=== PATIENT | male | born 1970 | race Caucasian/White ===

== ENCOUNTER 2017-01-10 18:01 | Inpatient (IN) | payer BC ==
[2017-01-10] MEDS ORDERED: HYDROmorphone 1 MG/ML 1 ML SYRINGE IVP STA (19:22)
--- NOTE | 2017-01-10 19:31 | ED ---
General Adult HPI - General Chief complaint: Recheck/Abnormal Lab/Rx Stated complaint: Hiatal Hernia-Sent by Dr Ladd Time Seen by Provider: 01/10/17 18:30 Source: patient, RN notes reviewed Mode of arrival: ambulatory Limitations: no limitations - History of Present Illness Initial comments: This is a 46-year-old male who presents emergency department stating that he has an umbilical hernia that is causing quite a bit of pain. Patient states the hernia started about 5 years ago the last evening cup coughing and he felt a tearing sensation is umbilical hernia it grow in size and became extremely tender. Patient saw Dr. Flakito Fraga sent the patient in the emergency department to be admitted. Patient denies any nausea or vomiting. Patient denies any fever chills patient denies chest pain difficulty breathing or shortness of breath - Related Data Home Medications Medication Instructions Recorded Confirmed Albuterol Inhaler [Ventolin Hfa 2 puff INHALATION RT-Q6H PRN 01/10/17 01/10/17 Inhaler] Albuterol Nebulized [Ventolin 2.5 mg INHALATION RT-Q6H PRN 01/10/17 01/10/17 Nebulized] Aspirin [Adult Low Dose Aspirin EC] 81 mg PO DAILY 01/10/17 01/10/17 Atorvastatin [Lipitor] 40 mg PO DAILY 01/10/17 01/10/17 Clopidogrel [Plavix] 75 mg PO DAILY 01/10/17 01/10/17 Ibuprofen [Motrin] 800 mg PO DAILY 01/10/17 01/10/17 Lisinopril [Zestril] 2.5 mg PO DAILY 01/10/17 01/10/17 Metoprolol Tartrate [Lopressor] 25 mg PO DAILY 01/10/17 01/10/17 Montelukast Sodium [Singulair] 10 mg PO DAILY 01/10/17 01/10/17 Allergies Allergy/AdvReac Type Severity Reaction Status Date / Time Penicillins Allergy Unknown Verified 01/10/17 19:16 Sulfa (Sulfonamide Allergy Unknown Verified 01/10/17 19:16 Antibiotics) Review of Systems ROS Statement: Those systems with pertinent positive or pertinent negative responses have been documented in the HPI. ROS Other: All systems not noted in ROS Statement are negative. Past Medical History Past Medical History: Asthma, COPD, Hyperlipidemia, Hypertension, Myocardial Infarction ([place]) History of Any Multi-Drug Resistant Organisms: None Reported Past Surgical History: Heart Catheterization With Stent Additional Past Surgical History / Comment(s): laparotomy Past Psychological History: No Psychological Hx Reported Smoking Status: Current every day smoker Past Alcohol Use History: None Reported Past Drug Use History: None Reported General Exam - General Exam Comments Initial Comments: GENERAL: Patient is well-developed and well-nourished. Patient is nontoxic and well- hydrated and is in mild distress. ENT: Neck is soft and supple. No significant lymphadenopathy is noted. Oropharynx is clear. Moist mucous membranes. Neck has full range of motion without eliciting any pain. EYES: The sclera were anicteric and conjunctiva were pink and moist. Extraocular movements were intact and pupils were equal round and reactive to light. Eyelids were unremarkable. PULMONARY: Unlabored respirations. Good breath sounds bilaterally. No audible rales rhonchi or wheezing was noted. CARDIOVASCULAR: There is a regular rate and rhythm without any murmurs gallops or rubs. ABDOMEN: Patient has an umbilical hernia that measures about 3 days in diameter and is extremely tender to touch and is erythematous SKIN: Skin is clear with no lesions or rashes and otherwise unremarkable. NEUROLOGIC: Patient is alert and oriented x3. Cranial nerves II through XII are grossly intact. Motor and sensory are also intact. Normal speech, volume and content. Symmetrical smile. MUSCULOSKELETAL: Normal extremities with adequate strength and full range of motion. No lower extremity swelling or edema. No calf tenderness. LYMPHATICS: No significant lymphadenopathy is noted PSYCHIATRIC: Normal psychiatric evaluation. Limitations: no limitations Course Vital Signs 01/10/17 01/10/17 01/10/17 18:13 19:47 20:54 Temperature 98.1 F Pulse Rate 68 83 62 Respiratory 20 18 17 Rate Blood Pressure 131/66 138/66 120/55 O2 Sat by Pulse 98 95 95 Oximetry Medical Decision Making - Medical Decision Making Dr. Nathan Anderson came down to see the patient and decided to take the patient to the OR - Lab Data Result diagrams: 01/10/17 19:43 01/10/17 19:43 Lab Results 01/10/17 01/10/17 01/10/17 Range/Units 19:43 19:43 19:43 WBC 9.6 (3.8-10.6) k/uL RBC 4.45 (4.30-5.90) m/uL Hgb 14.4 (13.0-17.5) gm/dL Hct 40.9 (39.0-53.0) % MCV 91.9 (80.0-100.0) fL MCH 32.4 (25.0-35.0) pg MCHC 35.2 (31.0-37.0) g/dL RDW 14.4 (11.5-15.5) % Plt Count 176 (150-450) k/uL Neutrophils % 67 % Lymphocytes % 20 % Monocytes % 7 % Eosinophils % 2 % Basophils % 0 % Neutrophils # 6.5 (1.3-7.7) k/uL Lymphocytes # 2.0 (1.0-4.8) k/uL Monocytes # 0.7 (0-1.0) k/uL Eosinophils # 0.2 (0-0.7) k/uL Basophils # 0.0 (0-0.2) k/uL PT (9.0-12.0) sec INR (<1.2) APTT (22.0-30.0) sec Sodium 136 L (137-145) mmol/L Potassium 4.2 (3.5-5.1) mmol/L Chloride 102 (98-107) mmol/L Carbon Dioxide 25 (22-30) mmol/L Anion Gap 9 mmol/L BUN 11 (9-20) mg/dL Creatinine 0.90 (0.66-1.25) mg/dL Est GFR (MDRD) Af Amer >60 (>60 ml/min/1.73 sqM) Est GFR (MDRD) Non-Af >60 (>60 ml/min/1.73 sqM) Glucose 84 (74-99) mg/dL Plasma Lactic Acid Mundo 0.8 (0.7-2.0) mmol/L Calcium 9.0 (8.4-10.2) mg/dL Total Bilirubin 1.2 (0.2-1.3) mg/dL AST 22 (17-59) U/L ALT 42 (21-72) U/L Alkaline Phosphatase 103 (38-126) U/L Total Protein 6.7 (6.3-8.2) g/dL Albumin 3.9 (3.5-5.0) g/dL 01/10/17 Range/Units 19:43 WBC (3.8-10.6) k/uL RBC (4.30-5.90) m/uL Hgb (13.0-17.5) gm/dL Hct (39.0-53.0) % MCV (80.0-100.0) fL MCH (25.0-35.0) pg MCHC (31.0-37.0) g/dL RDW (11.5-15.5) % Plt Count (150-450) k/uL Neutrophils % % Lymphocytes % % Monocytes % % Eosinophils % % Basophils % % Neutrophils # (1.3-7.7) k/uL Lymphocytes # (1.0-4.8) k/uL Monocytes # (0-1.0) k/uL Eosinophils # (0-0.7) k/uL Basophils # (0-0.2) k/uL PT 11.0 (9.0-12.0) sec INR 1.1 (<1.2) APTT 26.9 (22.0-30.0) sec Sodium (137-145) mmol/L Potassium (3.5-5.1) mmol/L Chloride (98-107) mmol/L Carbon Dioxide (22-30) mmol/L Anion Gap mmol/L BUN (9-20) mg/dL Creatinine (0.66-1.25) mg/dL Est GFR (MDRD) Af Amer (>60 ml/min/1.73 sqM) Est GFR (MDRD) Non-Af (>60 ml/min/1.73 sqM) Glucose (74-99) mg/dL Plasma Lactic Acid Mundo (0.7-2.0) mmol/L Calcium (8.4-10.2) mg/dL Total Bilirubin (0.2-1.3) mg/dL AST (17-59) U/L ALT (21-72) U/L Alkaline Phosphatase (38-126) U/L Total Protein (6.3-8.2) g/dL Albumin (3.5-5.0) g/dL Disposition Clinical Impression: Incarcerated hernia Disposition: ADMITTED IP TO THIS [facility] Referrals: Jitendra Drake MD [Primary Care Provider] - 1-2 days Time of Disposition: 21:15
[2017-01-10] MEDS ORDERED: RX INFO: IV CONTRAST WAS GIVEN 1 EACH MISC MISCELLANE PRN (19:36)
[2017-01-10 20:03] LABS: Basophils % (A) 0 %; CHCM 36.1; Eosinophils # (A) 0.2 k/uL (0-0.7); Eosinophils % (A) 2 %; HCT 40.9 % (39.0-53.0); HGB 14.4 gm/dL (13.0-17.5); Luc # (Auto) 0.29; Luc % (Auto) 3; Lymphocytes % (A) 20 %; MCH 32.4 pg (25.0-35.0); MCHC 35.2 g/dL (31.0-37.0); MCV 91.9 fL (80.0-100.0); Mean Platelet Volume 8.5; Monocytes # (A) 0.7 k/uL (0-1.0); Monocytes % (A) 7 %; Neutrophils # (A) 6.5 k/uL (1.3-7.7); Neutrophils % (A) 67 %; RBC 4.45 m/uL (4.30-5.90); RDW 14.4 % (11.5-15.5); WBC 9.6 k/uL (3.8-10.6); WBC (Perox) 9.47
[2017-01-10 20:08] LABS: ALT 42 U/L (21-72); AST 22 U/L (17-59); Alkaline Phosphatase 103 U/L (38-126); Anion Gap 9 mmol/L; Blood Urea Nitrogen 11 mg/dL (9-20); Carbon Dioxide 25 mmol/L (22-30); Chloride 102 mmol/L (98-107); Glucose 84 mg/dL (74-99); Non-African American GFR(MDRD) >60 (>60 ml/min/1.73 sqM); Potassium 4.2 mmol/L (3.5-5.1); Sodium 136 mmol/L (137-145); Total Bilirubin 1.2 mg/dL (0.2-1.3); Total Protein 6.7 g/dL (6.3-8.2)
[2017-01-10 20:12] LABS: INR 1.1 (<1.2); Partial Thromboplastin Time 26.9 sec (22.0-30.0)
--- NOTE | 2017-01-10 20:30 | CT ---
EXAMINATION TYPE: CT abdomen pelvis w con DATE OF EXAM: 01/10/2017 COMPARISON: NONE HISTORY: Umbilical hernia. CT DLP: 1709.00 mGycm Automated exposure control for dose reduction was used. TECHNIQUE: Helical acquisition of images was performed from the lung bases through the pelvis. CONTRAST: Performed without Oral Contrast and with IV Contrast, patient injected with 100 mL of Omnipaque 300. FINDINGS: Lung bases are clear of consolidation. There is no pleural effusion. Heart size is normal. The liver spleen pancreas gallbladder appear normal. Bile ducts are not dilated. There is no adrenal mass. Kidneys show satisfactory contrast opacification. There is no hydronephrosis. There is no retro peritoneal adenopathy. There is no ascites. I see no intestinal wall thickening. There are no dilated loops. There is umbilical hernia that conta ins fat and fluid. I do not see any definite bowel in the hernia sac. Hernia measures 5 x 3.5 cm. Abd ominal aorta is atheromatous. Bladder distends smoothly. There is no evidence of a pelvic mass. Appendix appears normal. I see no b brinda destructive process. IMPRESSION: LARGE UMBILICAL HERNIA CONTAINS OMENTAL FAT. THERE IS SOME FAT STRANDING CONSISTENT WITH INFLAMMATORY PROCESS. THIS EXTENDS INTO THE INTRA-ABDOMINAL OMENTAL FAT. NO EVIDENCE OF A BOWEL OBSTRUCTION. MODERATE ATHEROSCLEROTIC VASCULAR CALCIFICATION FOR THE PATIENT'S AGE.
[2017-01-10] MEDS ORDERED: ALBUTEROL NEBULIZED 2.5 MG/3 ML INHALATION STA (21:31)
[2017-01-10] MEDS ORDERED: HEPARIN SODIUM,PORCINE 5,000 UNIT/ML 1 ML VIAL SQ ONE (21:50)
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
[2017-01-10] MEDS ORDERED: LIDOCAINE 1% INJ 10MG/ML (20 ML MDV) ONE (22:36)
[2017-01-10] MEDS ORDERED: PROPOFOL 10 MG/ML 20 ML VIAL IV ONE (22:36)
[2017-01-10] MEDS ORDERED: fentaNYL (PF) 50 MCG/ML 2 ML AMP ONE (22:36)
[2017-01-10] MEDS ORDERED: SUCCINYLCHOLINE CHLORIDE 100 MG/5 ML SYR IV ONE (22:36)
[2017-01-10] MEDS ORDERED: ALBUTEROL INHALER 60 PUFF/8 GM INHALER INHALATION ONE (22:36)
[2017-01-10] MEDS ORDERED: MIDAZOLAM 2 MG/2 ML VIAL ONE (22:36)
[2017-01-10] MEDS ORDERED: ROCURONIUM BROMIDE 10 MG/ML 10 ML VIAL IV ONE (22:36)
[2017-01-10] MEDS ORDERED: IV FLUID CONTINUATION 800 ML IV ONE ×2 (22:36)
[2017-01-10] MEDS ORDERED: GLYCOPYRROLATE 0.2 MG/ML 2 ML VIAL ONE (22:36)
[2017-01-10] MEDS ORDERED: NEOSTIGMINE 1 MG/ML 10 ML VIAL ONE (22:36)
[2017-01-10] MEDS ORDERED: CIPROFLOXACIN/DEXTROSE PMX 400 MG in DEXTROSE/WATER 1 200ML.BAG IVPB STA (22:48)
[2017-01-10] MEDS ORDERED: SODIUM CHLORIDE 0.9% IV ONE ×2 (22:58)
[2017-01-10] MEDS ORDERED: CLINDAMYCIN IV ONE ×2 (22:58)
[2017-01-10] MEDS ORDERED: NALOXONE 0.4 MG/ML 1 ML VIAL IV PRN (23:33)
--- NOTE | 2017-01-10 23:33 | P.OP ---
Date of Procedure: 01/10/17 Preoperative Diagnosis: Incarcerated umbilical hernia with cellulitis Postoperative Diagnosis: Same Procedure(s) Performed: Reduction of incarcerated umbilical hernia, removal of hernia sac, repair of hernia Anesthesia: ALEXYS Surgeon: Loli Blanchard Estimated Blood Loss (ml): 20 IV fluids (ml): 1,000 Pathology: other (Hernia sac, incarcerated omentum) Condition: stable Disposition: PACU Indications for Procedure: Painful incarcerated umbilical hernia Operative Findings: Incarcerated umbilical hernia, Description of Procedure: Patient was taken to the operating room and following induction of general anesthesia the abdomen was prepped and draped in a sterile fashion. A periumbilical abdominal incision was made. This was carried down to the fascia superiorly and inferiorly of the intra-abdominal wall. The patient was noted noted to have a very indurated hernia sac and this was dissected free from the umbilical skin and to the area of the fascia. The sac was opened and the sac was then divided using the LigaSure. The sac was resected using the LigaSure. The actual defect in the fascia was approximately 3 cm in size and this was enlarged to reduce the contents of the sac. The contents of the sac revealed some incarcerated omentum. This was removed using the LigaSure. Upon entering the peritoneal cavity no evidence of any bowel in the sac was noted. There was noted to be inflammation near the area of the sac and some adhesions related to prior surgery. After we assured that hemostasis was attained the hernia defect was closed using 0 Prolene interrupted suture. The subcutaneous tissues were well irrigated. A fenestrated Elliott drain was placed. The deep tissues were closed with a 3-0 Vicryl suture. The skin was closed using parvin. The drain was secured using a nylon suture. All instrument and sponge counts were correct at the end of the case. The patient tolerated the procedure in stable condition.
[2017-01-11] MEDS ORDERED: PIPERACILLIN-TAZOBACTAM 3.375 GM in DEXTROSE/WATER 1 50ML.BAG IVPB SCH
[2017-01-11 00:45] VITALS: BMI 33.0
[2017-01-11] MEDS: HYDROmorphone 1 MG/ML 1 ML SYRINGE IV PRN ×4 (00:52→23:06)
[2017-01-11] MEDS: HEPARIN SODIUM,PORCINE 5,000 UNIT/ML 1 ML VIAL SQ SCH ×4 (00:53→23:06)
[2017-01-11] MEDS ORDERED: LORazepam 2 MG/ML SYRINGE IV PRN ×2 (01:06)
[2017-01-11 01:10] LABS: Potassium 4.2 mmol/L (3.5-5.1)
[2017-01-11] MEDS: DEXTROSE 5%-0.45% NACL 1,000 ML IV SCH ×3 (02:21→22:16)
[2017-01-11] MEDS ORDERED: ALBUTEROL NEBULIZED 2.5 MG/3 ML INHALATION PRN ×2 (07:43→08:42)
[2017-01-11] MEDS ORDERED: ALBUTEROL NEBULIZED 2.5 MG/3 ML INHALATION SCH (08:00)
[2017-01-11 08:08] LABS: Basophils % (A) 0 %; CHCM 35.4; Eosinophils % (A) 0 %; HGB 14.6 gm/dL (13.0-17.5); Luc # (Auto) 0.18; Luc % (Auto) 2; Lymphocytes # (A) 1.3 k/uL (1.0-4.8); Lymphocytes % (A) 11 %; MCH 31.8 pg (25.0-35.0); MCV 93.6 fL (80.0-100.0); Mean Platelet Volume 8.9; Monocytes # (A) 0.8 k/uL (0-1.0); Monocytes % (A) 7 %; Neutrophils # (A) 9.4 k/uL (1.3-7.7); Neutrophils % (A) 80 %; RDW 14.2 % (11.5-15.5); WBC 11.8 k/uL (3.8-10.6); WBC (Perox) 11.01
[2017-01-11] MEDS ORDERED: ALBUTEROL INHALER 60 PUFF/8 GM INHALER INHALATION PRN (08:42)
[2017-01-11] MEDS ORDERED: METOPROLOL TARTRATE 25 MG TAB PO SCH (09:00)
[2017-01-11] MEDS: ATORVASTATIN 40 MG TAB PO SCH (10:06)
[2017-01-11] MEDS: MONTELUKAST 10 MG TAB PO SCH (10:07)
[2017-01-11] MEDS: NICOTINE 21MG/24HR PATCH TRANSDERM SCH (10:09)
[2017-01-11] MEDS: LISINOPRIL 2.5 MG TAB PO SCH (10:14)
[2017-01-11] MEDS: PANTOPRAZOLE 40 MG/10 ML VIAL IV SCH (10:15)
[2017-01-11] MEDS: HYDROcodone/APAP 5-325MG 1 EACH TAB PO PRN ×2 (10:16→16:54)
--- NOTE | 2017-01-11 11:01 | P.PN ---
Subjective 46-year-old being seen this morning on rounds. Patient is postop done on January 10 reduction of incarcerated umbilical hernia, removal of the hernia sac, hernia repair. Patient initially presented to office for a surgical eval for cellulitis around the umbilical area. Patient stated that he had the hernia for about 5 years but he noted over the last several days when he started to cough he felt the steering sensation in the umbilical area. He also stated the hernia grew in size and became extremely tender. Recommendations were to present to the emergency room to be evaluated. Patient was seen in the emergency room by Dr. Evans surgical service. It was noted that the patient did have on presentation to the emergency room erythema at the site of the umbilical hernia extending approximately 5 cm circumferentially around the incarcerated hernia Patient elected to undergo reduction of incarcerated umbilical hernia on January 10. Patient reportedly developed an episode postop in the recovery area being increasingly confused and agitated. Patient was stabilized and was able to be transferred to the surgical unit there's been no further episodes of confusion or agitation Objective - Vital Signs Vital signs: Vital Signs Temp 98.3 F 01/11/17 07:00 Pulse 80 01/11/17 07:52 Resp 18 01/11/17 08:00 BP 122/62 01/11/17 07:00 Pulse Ox 87 L 01/11/17 07:00 Intake & Output 01/10/17 01/11/17 01/11/17 18:59 06:59 18:59 Intake Total 1452.67 Output Total 20 Balance 1432.67 Weight 113.398 kg 113.398 kg Intake: IV 1452.67 Dextrose 5%-0.45% NaCl 1, 500 000 ml @ 100 mls/hr IV . Q10H [facility] Rx#:[id number] Output: Estimated Blood Loss 20 Other: Voiding Method Toilet Urinal # Voids 1 - Exam GENERAL APPEARANCE: 46-year-old male patient is alert, oriented, in no acute distress. VITAL SIGNS: Reviewed HEENT: Head is normocephalic and atraumatic. Pupils are equal and reactive. The nares are patent. Oropharynx is clear without lesions. NECK: Supple without lymphadenopathy. Traches midline. HEART: S1, S2. Regular rate and rhythm. Currently denying chest pain no murmur noted LUNGS: No crackles or wheezes are heard. Currently on room air sats are 92% ABDOMEN: Soft, surgical tenderness to surgical site noted a few hypoactive bowel tones dried bloody drainage noted on the abdominal binder and surgical dressing no active bleed nondistended mild erythema noted along the umbilical hernia patient states it's improved EXTREMITIES: Normal skin color and turgor. No cyanosis, rash, ulceration, clubbing or edema. Radial pedal pulses are 2/4 bilaterally. NEUROLOGICAL: No focal deficits. Strength and sensation are grossly intact. - Labs CBC & Chem 7: 01/11/17 07:31 01/11/17 00:45 Labs: Abnormal Lab Results - Last 24 Hours (Table) 01/10/17 01/11/17 01/11/17 Range/Units 19:43 00:45 07:31 WBC 11.8 H (3.8-10.6) k/uL Neutrophils # 9.4 H (1.3-7.7) k/uL Sodium 136 L 135 L (137-145) mmol/L Assessment and Plan Plan: Impression history of umbilical hernia Present on admission umbilical pain suspect due to an incarcerated umbilical hernia History of coronary artery disease with prior coronary stenting 2014 Active nicotine dependency 1 pack a day greater than a 20 year history Mild asthma with no evidence of an exacerbation Present on admission erythrema at the site of the umbilical hernia extending approximately 5 cm circumferentially around the incarcerated hernia COPD with no evidence of an exacerbation Plan Continue postop surgical care Nicotine patch for the potential nicotine withdrawals Patient's been counseled about stop smoking cigarettes smoking cessation information will be provided Pain control DVT and GI prophylaxis Increase activity Encourage the use of the incentive spirometer Further surgical recommendations pending The above impression and plan of care have been discussed and directed by signing physician. Landy Benavides nurse practitioner acting as scribe for signing physician. Time with Patient: Greater than 30
[2017-01-11] MEDS: IPRATROPIUM-ALBUTEROL 3 ML NEB INHALATION SCH ×4 (11:34→19:54)
--- NOTE | 2017-01-11 12:32 | P.CRDCN ---
History of Present Illness Consult date: 01/11/17 History of present illness: This is a 46-year-old male. Past medical history significant for CAD with previous stent placement in 2015 at [facility], HTN, HLD, COPD and chronic tobacco abuse. The patient was seen and examined by myself and Dr. LAYA Payton together. He is postoperative day #1 for incarcerated umbilical hernia with Dr. Blanchard. He states he last saw his make up worker over a year ago and was recommended to undergo a follow-up stress test and has not done so. He denies any episodes of chest pain, shortness of breath, dizziness or palpitations. 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 He is very defensive and paranoid in conversation. There is no EKG or echo on file. His only complaint at this time is abdominal pain typical of post-surgical discomfort. Dressing is in place and is clean and dry. Review of Systems Extensive review of systems performed, negative except mentioned in HPI. Past Medical History Past Medical History: Asthma, COPD, Hyperlipidemia, Hypertension, Myocardial Infarction ([place]) Last Myocardial Infarction Date:: 07/16/14 History of Any Multi-Drug Resistant Organisms: None Reported Past Surgical History: Heart Catheterization With Stent Additional Past Surgical History / Comment(s): laparotomy Date of Last Stent Placement:: 08/13 Past Psychological History: No Psychological Hx Reported Smoking Status: Current every day smoker Past Alcohol Use History: None Reported Past Drug Use History: None Reported - Past Family History Father Family Medical History: No Reported History Medications and Allergies Home Medications Medication Instructions Recorded Confirmed Type Albuterol Inhaler [Ventolin Hfa 2 puff INHALATION RT-Q6H PRN 01/10/17 01/10/17 History Inhaler] Albuterol Nebulized [Ventolin 2.5 mg INHALATION RT-Q6H PRN 01/10/17 01/10/17 History Nebulized] Aspirin [Adult Low Dose Aspirin EC] 81 mg PO DAILY 01/10/17 01/10/17 History Atorvastatin [Lipitor] 40 mg PO DAILY 01/10/17 01/10/17 History Clopidogrel [Plavix] 75 mg PO DAILY 01/10/17 01/10/17 History Ibuprofen [Motrin] 800 mg PO DAILY 01/10/17 01/10/17 History Lisinopril [Zestril] 2.5 mg PO DAILY 01/10/17 01/10/17 History Metoprolol Tartrate [Lopressor] 25 mg PO DAILY 01/10/17 01/10/17 History Montelukast Sodium [Singulair] 10 mg PO DAILY 01/10/17 01/10/17 History Allergies Allergy/AdvReac Type Severity Reaction Status Date / Time Penicillins Allergy Unknown Verified 01/10/17 19:16 Sulfa (Sulfonamide Allergy Unknown Verified 01/10/17 19:16 Antibiotics) Physical Exam Vitals: Vital Signs Temp Pulse Pulse Pulse Resp BP BP 01/11/17 08:00 18 01/11/17 07:52 80 01/11/17 07:40 76 01/11/17 07:00 98.3 F 88 18 122/62 01/11/17 01:00 79 160/70 01/11/17 00:27 98.4 F 82 16 173/93 01/11/17 00:16 81 16 165/74 01/11/17 00:09 97.6 F 89 16 183/88 01/11/17 00:01 79 188/88 01/10/17 22:17 98 F 01/10/17 21:51 67 01/10/17 21:41 64 01/10/17 21:40 73 18 135/64 01/10/17 20:54 62 17 120/55 01/10/17 19:47 83 18 138/66 01/10/17 18:13 98.1 F 68 20 131/66 Pulse Ox 01/11/17 08:00 01/11/17 07:52 01/11/17 07:40 01/11/17 07:00 87 L 01/11/17 01:00 92 L 01/11/17 00:27 96 01/11/17 00:16 96 01/11/17 00:09 94 L 01/11/17 00:01 90 L 01/10/17 22:17 01/10/17 21:51 01/10/17 21:41 01/10/17 21:40 95 01/10/17 20:54 95 01/10/17 19:47 95 01/10/17 18:13 98 Intake and Output 01/10/17 01/11/17 01/11/17 22:59 06:59 14:59 Intake Total 252.67 1200 Output Total 20 Balance 252.67 1180 Intake: IV 252.67 1200 Dextrose 5%-0.45% NaCl 1, 500 000 ml @ 100 mls/hr IV . Q10H [facility] Rx#:[id number] Output: Estimated Blood Loss 20 Other: Voiding Method Toilet Urinal # Voids 1 Weight 113.398 kg GENERAL: This is a 46-year-old male in no apparent distress at the time of my examination. HEENT: Head is atraumatic, normocephalic. Pupils are equal, round. Sclerae anicteric. Conjunctivae are clear. Mucous membranes of the mouth are moist. Neck is supple. There is no jugular venous distention. No carotid bruit is heard. LUNGS: Course rhonchi on inspiration, generalized wheezes on expiration. No rhonchi. No chest wall tenderness is noted on palpation or with deep breathing. HEART: Regular rate and rhythm without murmurs, rubs or gallops. S1 and S2 heard. ABDOMEN: Soft, tender with dressing in place. EXTREMITIES: 2+ peripheral pulses with no evidence of peripheral edema and no calf tenderness noted. NEUROLOGIC: Patient is awake, alert and oriented x3. Results 01/11/17 07:31 01/11/17 00:45 Cardiac Enzymes 01/10/17 Range/Units 19:43 AST 22 (17-59) U/L Coagulation 01/10/17 Range/Units 19:43 PT 11.0 (9.0-12.0) sec APTT 26.9 (22.0-30.0) sec CBC 01/10/17 01/11/17 Range/Units 19:43 07:31 WBC 9.6 11.8 H (3.8-10.6) k/uL RBC 4.45 4.60 (4.30-5.90) m/uL Hgb 14.4 14.6 (13.0-17.5) gm/dL Hct 40.9 43.0 (39.0-53.0) % Plt Count 176 190 (150-450) k/uL Comprehensive Metabolic Panel 01/10/17 01/11/17 Range/Units 19:43 00:45 Sodium 136 L 135 L (137-145) mmol/L Potassium 4.2 4.2 (3.5-5.1) mmol/L Chloride 102 102 (98-107) mmol/L Carbon Dioxide 25 24 (22-30) mmol/L BUN 11 (9-20) mg/dL Creatinine 0.90 (0.66-1.25) mg/dL Glucose 84 (74-99) mg/dL Calcium 9.0 (8.4-10.2) mg/dL AST 22 (17-59) U/L ALT 42 (21-72) U/L Alkaline Phosphatase 103 (38-126) U/L Total Protein 6.7 (6.3-8.2) g/dL Albumin 3.9 (3.5-5.0) g/dL Current Medications Generic Name Dose Route Start Last Admin Trade Name Freq PRN Reason Stop Dose Admin Hydrocodone Bitart/Acetaminophen 1 each 01/10/17 23:33 01/11/17 10:16 [place] 5-325 PO 1 each Q4HR PRN Administration Moderate Pain Albuterol Sulfate 2.5 mg 01/11/17 07:43 Ventolin Nebulized INHALATION RT-QID PRN Shortness Of Breath Or Wheezing Albuterol/Ipratropium 3 ml 01/11/17 08:44 Duoneb 0.5 Mg-3 Mg/3 Ml Soln INHALATION RT-QID CATHY Atorvastatin Calcium 40 mg 01/11/17 09:00 01/11/17 10:06 Lipitor PO 40 mg DAILY CATHY Administration Heparin Sodium (Porcine) 5,000 unit 01/11/17 00:00 01/11/17 10:02 Heparin SQ 5,000 unit Q8HR CATHY Administration Hydromorphone HCl 1 mg 01/10/17 23:33 01/11/17 06:28 Dilaudid IV 1 mg Q3HR PRN Administration Severe Pain Dextrose/Sodium Chloride 1,000 mls @ 100 mls/hr 01/10/17 23:45 01/11/17 02:21 Dextrose 5%-1/2ns Iv Soln IV Not Given .Q10H CATHY Lisinopril 2.5 mg 01/11/17 09:00 01/11/17 10:14 Zestril PO 2.5 mg DAILY CATHY Administration Lorazepam 1 mg 01/11/17 01:06 Ativan IV Q2HR PRN CIWA 8 or 9 Lorazepam 1 mg 01/11/17 01:06 Ativan IV Q1HR PRN CIWA 10 to 15 Metoprolol Tartrate 25 mg 01/11/17 09:00 Lopressor PO DAILY CATHY Miscellaneous Information 1 each 01/10/17 19:36 01/10/17 20:05 Rx Info: Iv Contrast Was Given MISCELLANE 01/12/17 19:36 1 each DAILY PRN Administration Per Protocol Montelukast Sodium 10 mg 01/11/17 09:00 01/11/17 10:07 Singulair PO 10 mg DAILY CATHY Administration Naloxone HCl 0.2 mg 01/10/17 23:33 Narcan IV Q2M PRN Opioid Reversal Nicotine 1 patch 01/11/17 09:00 01/11/17 10:09 Habitrol 21mg/24hr Patch TRANSDERM 1 patch DAILY CATHY Administration Pantoprazole Sodium 40 mg 01/11/17 09:00 01/11/17 10:15 Protonix IV 40 mg DAILY CATHY Administration Intake and Output 01/10/17 01/11/17 01/11/17 22:59 06:59 14:59 Intake Total 252.67 1200 Output Total 20 Balance 252.67 1180 Intake: IV 252.67 1200 Dextrose 5%-0.45% NaCl 1, 500 000 ml @ 100 mls/hr IV . Q10H [facility] Rx#:[id number] Output: Estimated Blood Loss 20 Other: Voiding Method Toilet Urinal # Voids 1 Weight 113.398 kg 01/11/17 07:31 01/11/17 00:45 EKG Interpretations (text) EKG indicates normal sinus mechanism with acute ST or T-wave abnormalities. Assessment and Plan Plan: ASSESSMENT 1. Chronic stable CAD with 4 stents 2014 2. HTN 3. Incarcerated umbilical hernia, s/p reduction day #1 4. Chronic tobacco abuse PLAN Obtain baseline EKG and echocardiogram. Pt states he never takes his PM dose of lopressor because he forgets, consider switching to Toprol for better compliance. Thank you kindly for this consultation. Mr. No has been advised he can follow up with Dr. Payton as an outpatient in 2 weeks. Nurse Practitioner note has been reviewed, I agree with a documented findings and plan of care. Patient was seen and examined.
--- NOTE | 2017-01-11 14:01 | ECHOF ---
Referral Reason:hypertension MEASUREMENTS -------- HEIGHT: 180.3 cm WEIGHT: 113.4 kg BP: 122/62 IVSd: 1.2 cm (0.6 - 1.1) LVIDd: 3.5 cm (3.9 - 5.3) LVPWd: 1.6 cm (0.6 - 1.1) IVSs: 1.6 cm LVIDs: 1.9 cm LVPWs: 1.7 cm MV EXCURSION: 20.694 mm (> 18.000) MV EF SLOPE: 104 mm/s (70 - 150) EPSS: 1.1 cm MV E Akhil: 0.92 m/s MV DecT: 196 ms MV A Akhil: 0.89 m/s MV E/A Ratio: 1.03 RAP: 5.00 mmHg RVSP: 12.23 mmHg FINDINGS -------- Sinus rhythm. This was a technically good study. The left ventricular size is normal. There is mild concentric left ventricular hypertrophy. Overall left ventricular systolic function is normal with, an EF between 55 - 60 %. The right ventricle is normal in size and function. The left atrium is normal in size. The right atrium is normal in size. The aortic valve is trileaflet, and appears structurally normal. No aortic stenosis or regurgitation. There is trace mitral regurgitation. Trace tricuspid regurgitation present. The right ventricular systolic pressure, as measured by Doppler, is 12.23mmHg. Pulmonic valve appears structurally normal. The aortic root size is normal. The pericardium is normal. CONCLUSIONS -------- 1. Sinus rhythm. 2. There is trace mitral regurgitation. 3. Trace tricuspid regurgitation present. 4. The right ventricular systolic pressure, as measured by Doppler, is 12.23mmHg. 5. Pulmonic valve appears structurally normal. 6. The aortic root size is normal. 7. The pericardium is normal. 8. This was a technically good study. 9. The left ventricular size is normal. 10. There is mild concentric left ventricular hypertrophy. 11. Overall left ventricular systolic function is normal with, an EF between 55 - 60 %. 12. The right ventricle is normal in size and function. 13. The left atrium is normal in size. 14. The right atrium is normal in size. 15. The aortic valve is trileaflet, and appears structurally normal. No aortic stenosis or regurgitation. SCIENTIFIC INVESTIGATOR: Leydi Hill RDCS
--- NOTE | 2017-01-11 15:12 | CONS ---
CONSULTATION DATE OF CONSULTATION: 01/11/2017 REASON FOR CONSULTATION: Medical management requested by Dr. Jennifer Blanchard. CONSULTATION: This is a 46-year-old patient of Dr. Drake whose chronic stable medical conditions include COPD, coronary artery disease, patient is a cigarette smoker. Patient had an umbilical hernia for quite some time and was being followed conservatively. Patient had a bout of coughing 2 days ago and he felt his umbilicus was ripping apart. Dr. Fraga sent the patient in and patient was found to have umbilical hernia incarceration. Had repair done last night by Dr. Jennifer Blanchard. Patient had a stent back in 2014. No chest pain. Patient has got some wheezing and cough. Patient has not passed any flatus. REVIEW OF SYSTEMS: CONSTITUTIONAL: Tired. HEENT: None. RESPIRATORY: Some wheezing and cough. CARDIOVASCULAR: None. GASTROINTESTINAL: As above. GENITOURINARY: None. MUSCULOSKELETAL: None. DERMATOLOGIC: None. HEMATOLOGIC: None. LYMPHATIC: None. PSYCHIATRY: None. NEUROLOGICAL: None. PAST HISTORY: Hyperlipidemia, past history of COPD, coronary artery disease with stent. PAST SURGICAL HISTORY: Cardiac cath, laparotomy. SOCIAL HISTORY: Smokes a pack a day for 35 years. 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 FAMILY HISTORY: Reviewed, noncontributory to presentation. HOME MEDICATIONS: 1. Zestril 2.5 mg a day. 2. Ventolin 10 mg a day. 3. Plavix 75 mg daily. 4. Lipitor 40 mg daily. 5. Aspirin 81 mg daily. 6. Ventolin nebulizer q.6 p.r.n. 7. Motrin 800 mg a day. 8. Toprol-XL ER 25 mg a day. ALLERGIES: SULFA and PENICILLIN. PHYSICAL EXAMINATION: Temperature 98.3, pulse 88, respiration 18, blood pressure 122/62, pulse ox 97% on room air. GENERAL APPEARANCE: Well built, BMI 33, sitting up, tired-appearing. EYES: Pupils equal, conjunctivae normal. HEENT: Oral cavity normal. NECK: JVD not raised. Mass not palpable. RESPIRATORY: Effort increased. Lungs decreased breath sounds. Some expiratory wheezing. CARDIOVASCULAR: First and second sounds normal, no edema. ABDOMEN: Tender, dressing in place. Bowel sounds sluggish. Liver and spleen not palpable. LYMPHATIC: No lymph node palpable in neck or axillae. PSYCHIATRY: Alert and oriented x3. Mood and affect normal. NEUROLOGICAL: Pupils equal, cranial nerves grossly intact. Power and sensation grossly intact. INVESTIGATIONS: White count 11.8, hemoglobin 22.6, potassium 4.2. CT scan of the abdomen and pelvis, large umbilical hernia containing omental fat with some inflammatory process noted. ASSESSMENT: 1. Incarcerated umbilical hernia status post repair. 2. Obesity, body mass index of 33. 3. Chronic obstructive pulmonary disease in a current smoker. 4. Chronic nicotine dependence. Patient is an active cigarette smoker. 5. Coronary artery disease with stent in June of 2014. PLAN: 1. Patient was put on nebulized bronchodilators, also will put on inhaled steroids. Other home medications will be resumed and diet as per General Surgery. Cardiology is also following the patient. From my perspective, Patient is already 12 months beyond the stent, so Plavix can be held, but should be on aspirin if okay with Surgery. I will let Cardiology finalize that. Thank you, Dr. Jennifer Blanchard. Additionally smoke counseling was discussed with the patient. This was done for an additional 5 minutes from this note, including effects on COPD. . MMODL / IJN: [id number] /
[2017-01-11] MEDS: BUDESONIDE 1 MG/2 ML NEBU INHALATION SCH ×2 (19:53→19:54)
[2017-01-11] MEDS ORDERED: KETOROLAC 30 MG/ML 1 ML VIAL IVP STA (20:20)
--- NOTE | 2017-01-11 21:30 | P.CONS ---
History of Present Illness - Reason for Consult Consult date: 01/11/17 - Chief Complaint Abdominal pain - History of Present Illness 46 year old male who has a know history of an umbilical hernia was feeling relatively well. He relates that he awoke because he was having a coughing spasm. After coughing multiple times he felt the ripping searing sensation is abdominal mall. He palpated the area could actually feel his bowel underneath his skin. He called in sick to work and then he sought medical care. 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 He does not have a lot of physical activity except for his driving. He over does try to eat relatively well by cooking his own food that he takes out onto the road. He does not have an exercise regimen. After admission he had difficulty with the umbilical hernia was taking a gapping room where it was surgically repaired. He is having some ongoing pain but because a history of coronary artery disease and stents has limited options for pain control other than narcotics. 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 Review of Systems HEENT:Denies headache or acute visual change. Denies sinus or mouth discomforts. Denies neck stiffness or pain. Denies significant oral cavity pain. Denies difficulty on swallowing. Lungs: Denies significant shortness of breath, cough, sputum production, or hemoptysis. Cardiovascular: Denies significant shortness of breath, chest pain, chest wall pain, orthopnea, dyspnea on exertion, syncope Gastrointestinal: As per the HPI but denies nausea or emesis. She's had no diarrhea or constipation. No hematemesis melena or hematochezia. Musculoskeletal: denies significant myalgias or arthralgias. No new joint swelling. Denies new back pain. Skin: Denies new rash or lesions. No new ulcers or wounds are related.. Neuro: Denies headache or visual change. Denies any new onset weakness or difficulty with ambulation. Denies falls or seizures. Psychiatric:Denies anxiety or depression. Endocrine: Denies significant fatigue, denies significant weight loss or weight gain. Past Medical History Past Medical History: Asthma, COPD, Hyperlipidemia, Hypertension, Myocardial Infarction (MT) Last Myocardial Infarction Date:: 07/16/14 History of Any Multi-Drug Resistant Organisms: None Reported Past Surgical History: Heart Catheterization With Stent Additional Past Surgical History / Comment(s): laparotomy Date of Last Stent Placement:: 08/13 Past Psychological History: No Psychological Hx Reported Additional Psychological History / Comment(s): Single but has a significant other. No experience. No international travel. Positive tobacco use. No alcohol or recreational drug use. Multiple tattoos none are new. 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 Smoking Status: Current every day smoker Past Alcohol Use History: None Reported Past Drug Use History: None Reported - Past Family History Father Family Medical History: No Reported History Medications and Allergies Home Medications and Allergies Comment(s): Current Medications Hydrocodone Bitart/Acetaminophen ([place] 5-325) 1 each PO Q4HR PRN PRN Reason: Moderate Pain Last Admin: 01/11/17 16:54 Dose: 1 each Albuterol Sulfate (Ventolin Nebulized) 2.5 mg INHALATION RT-QID PRN PRN Reason: Shortness Of Breath Or Wheezing Albuterol/Ipratropium (Duoneb 0.5 Mg-3 Mg/3 Ml Soln) 3 ml INHALATION RT-QID [facility] Last Admin: 01/11/17 19:54 Dose: 3 ml Aspirin (Aspirin) 81 mg PO DAILY [facility] Atorvastatin Calcium (Lipitor) 40 mg PO DAILY [facility] Last Admin: 01/11/17 10:06 Dose: 40 mg Budesonide (Pulmicort) 1 mg INHALATION RT-BID [facility] Last Admin: 01/11/17 19:54 Dose: Not Given Clopidogrel Bisulfate (Plavix) 75 mg PO DAILY [facility] Heparin Sodium (Porcine) (Heparin) 5,000 unit SQ Q8HR [facility] Last Admin: 01/11/17 16:19 Dose: 5,000 unit Hydromorphone HCl (Dilaudid) 1 mg IV Q8H PRN PRN Reason: Severe Pain Last Admin: 01/11/17 14:39 Dose: 1 mg Dextrose/Sodium Chloride (Dextrose 5%-1/2ns Iv Soln) 1,000 mls @ 100 mls/hr IV .Q10H [facility] Last Admin: 01/11/17 11:35 Dose: 100 mls/hr Lisinopril (Zestril) 2.5 mg PO DAILY [facility] Last Admin: 01/11/17 10:14 Dose: 2.5 mg Lorazepam (Ativan) 1 mg IV Q2HR PRN PRN Reason: CIWA 8 or 9 Lorazepam (Ativan) 1 mg IV Q1HR PRN PRN Reason: CIWA 10 to 15 Metoprolol Succinate (Toprol Xl) 25 mg PO DAILY [facility] Miscellaneous Information (Rx Info: Iv Contrast Was Given) 1 each MISCELLANE DAILY PRN PRN Reason: Per Protocol Stop: 01/12/17 19:36 Last Admin: 01/10/17 20:05 Dose: 1 each Montelukast Sodium (Singulair) 10 mg PO DAILY [facility] Last Admin: 01/11/17 10:07 Dose: 10 mg Naloxone HCl (Narcan) 0.2 mg IV Q2M PRN PRN Reason: Opioid Reversal Nicotine (Habitrol 21mg/24hr Patch) 1 patch TRANSDERM DAILY [facility] Last Admin: 01/11/17 10:09 Dose: 1 patch Pantoprazole Sodium (Protonix) 40 mg IV DAILY [facility] Last Admin: 01/11/17 10:15 Dose: 40 mg Home Medications Medication Instructions Recorded Confirmed Type Albuterol Inhaler [Ventolin Hfa 2 puff INHALATION RT-Q6H PRN 01/10/17 01/10/17 History Inhaler] Albuterol Nebulized [Ventolin 2.5 mg INHALATION RT-Q6H PRN 01/10/17 01/10/17 History Nebulized] Aspirin [Adult Low Dose Aspirin EC] 81 mg PO DAILY 01/10/17 01/10/17 History Atorvastatin [Lipitor] 40 mg PO DAILY 01/10/17 01/10/17 History Clopidogrel [Plavix] 75 mg PO DAILY 01/10/17 01/10/17 History Ibuprofen [Motrin] 800 mg PO DAILY 01/10/17 01/10/17 History Lisinopril [Zestril] 2.5 mg PO DAILY 01/10/17 01/10/17 History Montelukast Sodium [Singulair] 10 mg PO DAILY 01/10/17 01/10/17 History Metoprolol Succinate (ER) [Toprol 25 mg PO DAILY #30 tab 01/11/17 Rx XL] Allergies Allergy/AdvReac Type Severity Reaction Status Date / Time Penicillins Allergy Unknown Verified 01/10/17 19:16 Sulfa (Sulfonamide Allergy Unknown Verified 01/10/17 19:16 Antibiotics) Physical Exam Vitals: Vital Signs Temp Pulse Pulse Pulse Resp BP BP 01/11/17 20:10 72 01/11/17 19:54 71 01/11/17 16:03 64 01/11/17 15:49 60 01/11/17 15:22 97.8 F 80 16 128/77 01/11/17 11:34 76 01/11/17 08:00 18 01/11/17 07:52 80 01/11/17 07:40 76 01/11/17 07:00 98.3 F 88 18 122/62 01/11/17 01:00 79 160/70 01/11/17 00:27 98.4 F 82 16 173/93 01/11/17 00:16 81 16 165/74 01/11/17 00:09 97.6 F 89 16 183/88 01/11/17 00:01 79 188/88 01/10/17 22:17 98 F 01/10/17 21:51 67 01/10/17 21:41 64 01/10/17 21:40 73 18 135/64 Pulse Ox 01/11/17 20:10 01/11/17 19:54 93 L 01/11/17 16:03 01/11/17 15:49 01/11/17 15:22 92 L 01/11/17 11:34 01/11/17 08:00 01/11/17 07:52 01/11/17 07:40 01/11/17 07:00 87 L 01/11/17 01:00 92 L 01/11/17 00:27 96 01/11/17 00:16 96 01/11/17 00:09 94 L 01/11/17 00:01 90 L 01/10/17 22:17 01/10/17 21:51 01/10/17 21:41 01/10/17 21:40 95 Intake and Output 01/11/17 01/11/17 01/11/17 06:59 14:59 22:59 Intake Total 1200 800 Output Total 20 Balance 1180 800 Intake: IV 1200 800 Dextrose 5%-0.45% NaCl 1, 500 800 000 ml @ 100 mls/hr IV . Q10H [facility] Rx#:[id number] Output: Estimated Blood Loss 20 Other: Voiding Method Toilet Toilet Urinal Urinal # Voids 1 2 Pleasant 46-year-old male who does have obesity but is quite comfortable at this time except for complaints of abdominal pain HEENT: Anicteric conjunctiva are pink and moist nasal mucosa grossly intact without significant lesions, there is no thrush. Neck: The neck is supple without significant lymphadenopathy or thyromegaly. Lungs: Good bilateral air entry without significant crackles few scattered wheezes were heard. There is no significant bronchial sounds. There is no egophony or dullness. Heart: Regular rate and rhythm with an audible S1-S2, no S3 no S4. There is no significant murmur click or rub, PMI was nondisplaced. Abdomen: Positive bowel sounds are heard. The silver postoperative dressing is in place and not removed. There is some tenderness to the abdominal wall. There is no distinct erythema. Extremities: The upper extremities have excellent pulses they are symmetric, no significant petechiae or telangiectasia. No splinter hemorrhages were noted. The lower extremities are free from significant edema. The peripheral pulses were 2+ and symmetric. Neuro: Awake alert oriented to person place and time. There are no acute new gross focal sensory motor deficits. Results CBC & Chem 7: 01/11/17 07:31 01/11/17 00:45 Labs: Abnormal Lab Results - Last 24 Hours (Table) 01/11/17 01/11/17 Range/Units 00:45 07:31 WBC 11.8 H (3.8-10.6) k/uL Neutrophils # 9.4 H (1.3-7.7) k/uL Sodium 135 L (137-145) mmol/L Laboratory Results WBC 11.8 k/uL (3.8-10.6) H 01/11/17 07:31 RBC 4.60 m/uL (4.30-5.90) 01/11/17 07:31 Hgb 14.6 gm/dL (13.0-17.5) 01/11/17 07:31 Hct 43.0 % (39.0-53.0) 01/11/17 07:31 MCV 93.6 fL (80.0-100.0) 01/11/17 07:31 MCH 31.8 pg (25.0-35.0) 01/11/17 07:31 MCHC 34.0 g/dL (31.0-37.0) 01/11/17 07:31 RDW 14.2 % (11.5-15.5) 01/11/17 07:31 Plt Count 190 k/uL (150-450) 01/11/17 07:31 Neutrophils % 80 % 01/11/17 07:31 Lymphocytes % 11 % 01/11/17 07:31 Monocytes % 7 % 01/11/17 07:31 Eosinophils % 0 % 01/11/17 07:31 Basophils % 0 % 01/11/17 07:31 Neutrophils # 9.4 k/uL (1.3-7.7) H 01/11/17 07:31 Lymphocytes # 1.3 k/uL (1.0-4.8) 01/11/17 07:31 Monocytes # 0.8 k/uL (0-1.0) 01/11/17 07:31 Eosinophils # 0.0 k/uL (0-0.7) 01/11/17 07:31 Basophils # 0.0 k/uL (0-0.2) 01/11/17 07:31 PT 11.0 sec (9.0-12.0) 01/10/17 19:43 INR 1.1 (<1.2) 01/10/17 19:43 APTT 26.9 sec (22.0-30.0) 01/10/17 19:43 Sodium 135 mmol/L (137-145) L 01/11/17 00:45 Potassium 4.2 mmol/L (3.5-5.1) 01/11/17 00:45 Chloride 102 mmol/L (98-107) 01/11/17 00:45 Carbon Dioxide 24 mmol/L (22-30) 01/11/17 00:45 Anion Gap 9 mmol/L 01/11/17 00:45 BUN 11 mg/dL (9-20) 01/10/17 19:43 Creatinine 0.90 mg/dL (0.66-1.25) 01/10/17 19:43 Est GFR (MDRD) Af Amer >60 (>60 ml/min/1.73 sqM) 01/10/17 19:43 Est GFR (MDRD) Non-Af >60 (>60 ml/min/1.73 sqM) 01/10/17 19:43 Glucose 84 mg/dL (74-99) 09/12/17 19:43 Plasma Lactic Acid Mundo 0.8 mmol/L (0.7-2.0) 01/10/17 19:43 Calcium 9.0 mg/dL (8.4-10.2) 01/10/17 19:43 Total Bilirubin 1.2 mg/dL (0.2-1.3) 01/10/17 19:43 AST 22 U/L (17-59) 01/10/17 19:43 ALT 42 U/L (21-72) 01/10/17 19:43 Alkaline Phosphatase 103 U/L (38-126) 01/10/17 19:43 Total Protein 6.7 g/dL (6.3-8.2) 01/10/17 19:43 Albumin 3.9 g/dL (3.5-5.0) 01/10/17 19:43 Assessment and Plan (1) Incarcerated hernia Narrative/Plan: 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 He had been coughing and had a sudden onset of searing tearing abdominal pain. He had the onset of an acute umbilical hernia. Was taken to the operating room and this has been surgically repaired. Some minimal erythema to the abdominal wall was noted and request for antibiotic therapy given his ALLERGIES. The patient relates he was told by ALLERGY testing and penicillin sulfa ALLERGY as a child. His been a neither antibiotics over time. At this time cefuroxime 500 mg every 12 hours be utilized to complete a seven- day course of therapy for the bit of cellulitis of abdominal wall. 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 Cardiology has seen him and will be following up in the outpatient setting after discharge. Patient without evidence of sepsis, minimal leukocytosis is postoperative in nature. He is a tobacco smoker we discussed smoking cessation, utilizing a multivitamin and a good protein intake to help him with his healing process. Status: Acute
[2017-01-11] MEDS: CEFUROXIME 250 MG TAB PO SCH (23:05)
[2017-01-12] MEDS: HYDROcodone/APAP 5-325MG 1 EACH TAB PO PRN (05:07)
[2017-01-12] MEDS: DEXTROSE 5%-0.45% NACL 1,000 ML IV SCH (07:10)
[2017-01-12 07:32] VITALS: BP 133/70; RESP 20; TEMP 98.4
--- NOTE | 2017-01-12 07:55 | P.PN ---
Subjective Principal diagnosis: Postop day #2 repair of incarcerated umbilical hernia The patient is a 46-year-old white male who presented to the emergency room on Monday evening with an incarcerated umbilical hernia. He was taken to the operating room where the hernia was repaired. The patient had some cellulitis of the abdominal wall which has improved, and he has been seen by Dr. Valadez related to this. The patient is tolerating a diet at this time and has had some bowel activity. Objective - Vital Signs Vital signs: Vital Signs Temp 98.4 F 01/12/17 07:00 Pulse 65 01/12/17 07:00 Resp 20 01/12/17 07:00 BP 133/70 01/12/17 07:00 Pulse Ox 93 L 01/12/17 07:00 Intake & Output 01/11/17 01/12/17 01/12/17 18:59 06:59 18:59 Intake Total 800 1390 Balance 800 1390 Intake: IV 800 800 Dextrose 5%-0.45% NaCl 1, 800 800 000 ml @ 100 mls/hr IV . Q10H [facility] Rx#:[id number] Oral 590 Other: Voiding Method Toilet Toilet Urinal Urinal # Voids 2 2 - Constitutional General appearance: Present: obese - Respiratory Details: Lungs are clear at this time - Cardiovascular Rhythm: regular Heart sounds: normal: S1, S2 - Gastrointestinal Gastrointestinal Comment(s): Positive bowel sounds Silver dressing in place Patient has some mild discoloration of the distal portion of the dressing where a inferior drain was in place and he had some serosanguineous drainage. The dressing was elevated enough to remove the drain which was removed - Psychiatric Psychiatric: Present: A&O x's 3, appropriate affect, intact judgment & insight - Labs CBC & Chem 7: 01/11/17 07:31 01/11/17 00:45 Labs: Abnormal Lab Results - Last 24 Hours (Table) 01/11/17 Range/Units 07:31 WBC 11.8 H (3.8-10.6) k/uL Neutrophils # 9.4 H (1.3-7.7) k/uL Assessment and Plan Plan: Impression/plan: 1. 46-year-old gentleman postop day #2 repair of incarcerated umbilical hernia 2. History of myocardial infarction with cardiac stents 3. History of COPD/asthma long-time smoker 4. The patient has been on aspirin/Motrin/Plavix Plan: 1. Patient is stable for discharge from a surgical standpoint 2. He is instructed to do no heavy lifting and not to drive until seen by Dr. Evans 3. He will go home on oral antibiotics 4. Discharge is dependent on okay from medicine and cardiology
--- NOTE | 2017-01-12 07:58 | P.DS ---
Providers Date of admission: 01/10/17 21:38 Attending physician: Loli Blanchard Consults: 01/10/17 23:37 Consult Physician Routine Consulting Provider: Douglas Edmonds Consult Reason/Comments: medical managment Do you want consulting provider notified?: Yes 01/10/17 23:40 Consult Physician Routine Consulting Provider: Tio Valadez Consult Reason/Comments: abdominal wall cellulitis Do you want consulting provider notified?: Yes, Notify in am Primary care physician: Jitendra Drake Plan - Discharge Summary New Discharge Prescriptions: New Metoprolol Succinate (ER) [Toprol XL] 25 mg PO DAILY #30 tab Continue Lisinopril [Zestril] 2.5 mg PO DAILY Clopidogrel [Plavix] 75 mg PO DAILY Atorvastatin [Lipitor] 40 mg PO DAILY Aspirin [Adult Low Dose Aspirin EC] 81 mg PO DAILY Discontinued Metoprolol Tartrate [Lopressor] 25 mg PO DAILY No Action Montelukast Sodium [Singulair] 10 mg PO DAILY Albuterol Nebulized [Ventolin Nebulized] 2.5 mg INHALATION RT-Q6H PRN PRN Reason: Shortness Of Breath Albuterol Inhaler [Ventolin Hfa Inhaler] 2 puff INHALATION RT-Q6H PRN PRN Reason: Shortness Of Breath Ibuprofen [Motrin] 800 mg PO DAILY Discharge Medication List Albuterol Inhaler [Ventolin Hfa Inhaler] 2 puff INHALATION RT-Q6H PRN 01/10/17 [ History] Albuterol Nebulized [Ventolin Nebulized] 2.5 mg INHALATION RT-Q6H PRN 01/10/17 [ History] Aspirin [Adult Low Dose Aspirin EC] 81 mg PO DAILY 01/10/17 [History] Atorvastatin [Lipitor] 40 mg PO DAILY 01/10/17 [History] Clopidogrel [Plavix] 75 mg PO DAILY 01/10/17 [History] Ibuprofen [Motrin] 800 mg PO DAILY 01/10/17 [History] Lisinopril [Zestril] 2.5 mg PO DAILY 01/10/17 [History] Montelukast Sodium [Singulair] 10 mg PO DAILY 01/10/17 [History] Metoprolol Succinate (ER) [Toprol XL] 25 mg PO DAILY #30 tab 01/11/17 [Rx] Follow up Appointment(s)/Referral(s): Bronwyn Payton MD [STAFF PHYSICIAN] - 2 Weeks (Please schedule appt at the [place] office.) Jitendra Drake MD [Primary Care Provider] - 1-2 days Loli Blanchard MD [Emergency Provider] - 1 Week Activity/Diet/Wound Care/Special Instructions: No heavy lifting Do not drive until seen by Dr. Evans wear abdominal binder at all times Patient okay to restart aspirin and Plavix Discharge okay if okay with cardiology and medicine Discharge Disposition: HOME SELF-CARE
[2017-01-12] MEDS: HEPARIN SODIUM,PORCINE 5,000 UNIT/ML 1 ML VIAL SQ SCH (08:01)
[2017-01-12 08:02] LABS: Basophils % (A) 0 %; CHCM 35.4; Eosinophils # (A) 0.1 k/uL (0-0.7); Eosinophils % (A) 1 %; HCT 41.4 % (39.0-53.0); HDW 2.83; HGB 14.1 gm/dL (13.0-17.5); Luc # (Auto) 0.15; Luc % (Auto) 2; Lymphocytes # (A) 1.4 k/uL (1.0-4.8); Lymphocytes % (A) 19 %; MCH 31.8 pg (25.0-35.0); MCV 93.6 fL (80.0-100.0); Mean Platelet Volume 8.8; Monocytes # (A) 0.5 k/uL (0-1.0); Monocytes % (A) 7 %; Neutrophils # (A) 5.1 k/uL (1.3-7.7); Neutrophils % (A) 71 %; RBC 4.42 m/uL (4.30-5.90); RDW 13.9 % (11.5-15.5); WBC 7.3 k/uL (3.8-10.6); WBC (Perox) 7.41
[2017-01-12] MEDS: CEFUROXIME 250 MG TAB PO SCH (08:02)
[2017-01-12] MEDS: ATORVASTATIN 40 MG TAB PO SCH (08:02)
[2017-01-12] MEDS: LISINOPRIL 2.5 MG TAB PO SCH (08:03)
[2017-01-12] MEDS: PANTOPRAZOLE 40 MG/10 ML VIAL IV SCH (08:04)
[2017-01-12] MEDS: NICOTINE 21MG/24HR PATCH TRANSDERM SCH (08:04)
[2017-01-12] MEDS: MONTELUKAST 10 MG TAB PO SCH (08:04)
[2017-01-12 08:20] LABS: ALT 54 U/L (21-72); AST 124 U/L (17-59); Alkaline Phosphatase 86 U/L (38-126); Anion Gap 9 mmol/L; Blood Urea Nitrogen 11 mg/dL (9-20); Carbon Dioxide 29 mmol/L (22-30); Chloride 100 mmol/L (98-107); Glucose 98 mg/dL (74-99); Non-African American GFR(MDRD) >60 (>60 ml/min/1.73 sqM); Potassium 4.5 mmol/L (3.5-5.1); Sodium 138 mmol/L (137-145); Total Bilirubin 0.9 mg/dL (0.2-1.3); Total Protein 6.6 g/dL (6.3-8.2)
[2017-01-12] MEDS: IPRATROPIUM-ALBUTEROL 3 ML NEB INHALATION SCH (08:36)
[2017-01-12] MEDS: BUDESONIDE 1 MG/2 ML NEBU INHALATION SCH (08:36)
[2017-01-12 08:55] VITALS: PULSE 68
[2017-01-12] MEDS ORDERED: METOPROLOL SUCCINATE (ER) 25 MG TAB.ER.24H PO SCH (09:00)
[2017-01-12] MEDS ORDERED: ASPIRIN 81 MG PO SCH (09:00)
[2017-01-12] MEDS ORDERED: CLOPIDOGREL 75 MG TAB PO SCH (09:00)
== END 2017-01-12 10:20 | disposition home or self-care (01) | DRG 354 ==
LOC: EC 18:01 → 5MS5E 21:38 → 5ONC 01-11 00:27
PROVIDERS: ADMIT Surgery; ATTEND Surgery
PROC: 0WQF0ZZ Repair Abdominal Wall, Open Approach (ICD-10-PCS; principal; 2017-01-10 22:02)
DX: K42.0 Umbilical hernia with obstruction, without gangrene (principal); L03.311 Cellulitis of abdominal wall; I10 Essential (primary) hypertension; E78.5 Hyperlipidemia, unspecified; E66.9 Obesity, unspecified; F17.210 Nicotine dependence, cigarettes, uncomplicated; I25.10 Atherosclerotic heart disease of native coronary artery without angina pectoris; I25.2 Old myocardial infarction; J44.9 Chronic obstructive pulmonary disease, unspecified; Z68.33 Body mass index [BMI] 33.0-33.9, adult; Z79.02 Long term (current) use of antithrombotics/antiplatelets; Z79.82 Long term (current) use of aspirin; Z79.899 Other long term (current) drug therapy; Z95.5 Presence of coronary angioplasty implant and graft; Z88.2 Allergy status to sulfonamides; Z88.0 Allergy status to penicillin
CPT/HCPCS: 36415; 74177; 80051; 80053; 83605; 85025; 85610; 85730; 88302; 93005; 93306; 94640; 94760; 96372; 96374; 99285

== ENCOUNTER 2022-12-13 14:54 | Emergency (ER) | payer BC, MEDICARE ==
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
[2022-12-13 15:44] LABS: Anisocytosis Slight; Basophils # (A) 0.1 k/uL (0-0.2); Basophils % (A) 0 %; Eosinophils # (A) 0.1 k/uL (0-0.7); Eosinophils % (A) 1 %; HCT 47.1 % (39.0-53.0); HGB 14.6 gm/dL (13.0-17.5); Hypochromasia Marked; Lymphocytes # (A) 1.7 k/uL (1.0-4.8); Lymphocytes % (A) 16 %; MCH 28.3 pg (25.0-35.0); MCV 91.5 fL (80.0-100.0); Monocytes # (A) 0.7 k/uL (0-1.0); Monocytes % (A) 7 %; Neutrophils # (A) 7.7 k/uL (1.3-7.7); Neutrophils % (A) 73 %; Platelet Count 248 k/uL (150-450); Poikilocytosis Slight; RBC 5.14 m/uL (4.30-5.90); RDW 16.2 % (11.5-15.5); WBC 10.6 k/uL (3.8-10.6)
[2022-12-13] MEDS ORDERED: FUROSEMIDE 10 MG/ML 4 ML VIAL IV STA (15:44)
[2022-12-13 16:03] LABS: Alkaline Phosphatase 139 U/L (38-126); Blood Urea Nitrogen 15 mg/dL (9-20); Glucose 75 mg/dL (74-99); Sodium 138 mmol/L (137-145)
[2022-12-13 16:05] LABS: ALT 77 U/L (4-49); AST 59 U/L (17-59); African American GFR (CKD) >90 (>60 ml/min/1.73 sqM); Albumin 3.9 g/dL (3.5-5.0); Anion Gap 7 mmol/L; C Reactive Protein 3.3 mg/dL (<1.0); Calcium 8.9 mg/dL (8.4-10.2); Carbon Dioxide 34 mmol/L (22-30); Chloride 97 mmol/L (98-107); Non-African American GFR(CKD) >90 (>60 ml/min/1.73 sqM); Potassium 4.9 mmol/L (3.5-5.1); Total Bilirubin 0.8 mg/dL (0.2-1.3); Total Protein 7.3 g/dL (6.3-8.2)
[2022-12-13 16:07] LABS: INR 1.1 (<1.2); Partial Thromboplastin Time 24.2 sec (22.0-30.0); Prothrombin Time 11.5 sec (9.0-12.0)
[2022-12-13 16:11] LABS: NT-Pro-B-Type Natriuretic Pept 3650 pg/mL
--- NOTE | 2022-12-13 16:23 | XR ---
EXAMINATION TYPE: XR chest 2V DATE OF EXAM: 12/13/2022 4:18 PM COMPARISON: None TECHNIQUE: XR chest 2V Frontal and lateral views of the chest. CLINICAL INDICATION:Male, 52 years old with history of Low oxygen saturation; FINDINGS: Lungs/Pleura: There is no evidence of pleural effusion, focal consolidation, or pneumothorax. Pulmonary vascularity: Mild pulmonary vascular congestion. Heart/mediastinum: Cardiomediastinal silhouette is enlarged. Musculoskeletal: No acute osseous pathology. Lumbar fusion hardware demonstrated. IMPRESSION: Cardiomegaly and mild pulmonary vascular congestion. Correlate with BNP for congestive heart failure.
--- NOTE | 2022-12-13 16:24 | XR ---
EXAMINATION TYPE: XR knee complete bilateral DATE OF EXAM: 12/13/2022 4:18 PM INDICATION: Patient age:Male; 52 years old; Reason for study: Pain, redness, and swelling; PHH. COMPARISON: None. TECHNIQUE: Both knees were examined in frontal, lateral, and oblique projections. FINDINGS: No evidence of any acute osseous pathology, joint space narrowing, or joint effusion is n oted. No lytic or sclerotic lesions identified. Diffuse subcutaneous edema bilaterally. IMPRESSION: 1. No acute osseous pathology. 2. Diffuse subcutaneous edema bilaterally.
--- NOTE | 2022-12-13 16:25 | XR ---
EXAMINATION TYPE: XR tibia fibula bilateral DATE OF EXAM: 12/13/2022 4:18 PM INDICATION: Patient age:Male; 52 years old; Reason for study: Pain, redness, and swelling; PHH. COMPARISON: Bilateral knee radiographs of the same date TECHNIQUE: Both tibia/fibula were examined in AP and lateral projections. FINDINGS: No evidence of any acute osseous pathology, joint dislocation. No lytic or sclerotic lesion s identified. Diffuse subcutaneous edema bilaterally. IMPRESSION: 1. No evidence of acute fracture. 2. Diffuse subcutaneous edema bilaterally.
--- NOTE | 2022-12-13 16:26 | XR ---
EXAMINATION TYPE: XR foot complete LT DATE OF EXAM: 12/13/2022 4:18 PM INDICATION: Patient age:Male; 52 years old; Reason for study: PAIN, SWELLING, REDNESS; PHH. COMPARISON: Bilateral lower extremity radiograph the same date TECHNIQUE: The left foot was examined in the AP, oblique, and lateral projections. FINDINGS: No evidence of any acute osseous pathology. Diffuse soft tissue swelling. This is most prominently i nvolving the dorsum of the midfoot. No osseous erosions. Benign bone island within the cuboid bone. J oints are preserved. IMPRESSION: 1. No evidence of acute fracture. 2. Diffuse soft tissue swelling. This is most prominent involving the dorsum of the midfoot.
[2022-12-13] MEDS ORDERED: NALOXONE 0.4 MG/ML 1 ML VIAL IV PRN (18:05)
[2022-12-13 20:55] VITALS: BP 148/88; PULSE 98; RESP 22; TEMP 98.7
== END 2022-12-13 20:59 | disposition left against medical advice (07) ==
LOC: EC 14:54 → UNDOADMOB 18:05 → 3SCARD 18:05 → UNDODISOB 20:59 → EC 20:59
DX: I11.0 Hypertensive heart disease with heart failure (principal); I50.9 Heart failure, unspecified; L03.90 Cellulitis, unspecified; Z53.29 Procedure and treatment not carried out because of patient's decision for other reasons; G82.20 Paraplegia, unspecified; J45.909 Unspecified asthma, uncomplicated; E78.5 Hyperlipidemia, unspecified; I25.2 Old myocardial infarction; Z95.5 Presence of coronary angioplasty implant and graft; Z79.899 Other long term (current) drug therapy; Z79.82 Long term (current) use of aspirin; Z88.0 Allergy status to penicillin; Z88.2 Allergy status to sulfonamides
CPT/HCPCS: 96374; 99285; 36415; 93005; 83880; 80053; 83605; 84484; 85025; 85610; 85730; 86140; 73562; 73590; 73630; 71046; J1940